=== PATIENT | female | born 1985 | race Caucasian/White ===

== ENCOUNTER 2017-02-25 17:04 | Outpatient (CLI) | payer MEDICAID | END 2017-02-25 17:05 | disposition EMS.NT | LOC: EMS 17:04 | PROVIDERS: ATTEND Surgery | DX: R06.2 Wheezing (principal); M54.5 Low back pain; V49.40XA Driver injured in collision with unspecified motor vehicles in traffic accident, initial encounter; Y92.414 Local residential or business street as the place of occurrence of the external cause ==

== ENCOUNTER 2019-09-09 10:23 | Outpatient (CLI) | payer OTHER, BC ==
--- NOTE | 2019-09-09 12:57 | XRAY Report ---
Reason: NONDISPLACED FRACTURE OF LATERAL [facility]LEOLUS OF [facility] Procedure Date: 09/09/2019 Accession Number: [id number] / [id number] Procedure: XR - Ankle 3 View RT CPT Code: Final Report FULL RESULT: EXAM: RIGHT ANKLE RADIOGRAPHY EXAM DATE: 09/09/2019 10:32 AM. CLINICAL HISTORY: NONDISPLACED FRACTURE OF LATERAL MALLEOLUS RIGHT COMPARISON: None. TECHNIQUE: 3 views. FINDINGS: Bones: Fracture lucency not visible. Joints: Normal. No effusion. No subluxations. The ankle mortise is normally aligned. Soft Tissues: Soft tissue swelling. IMPRESSION: Fracture lucency not visible. RADIA
== END 2019-09-09 10:24 | disposition home or self-care (01) ==
LOC: DI 10:23
PROVIDERS: ATTEND Nurse Practitioner
DX: S82.64XA Nondisplaced fracture of lateral malleolus of right fibula, initial encounter for closed fracture (principal)

== ENCOUNTER → 2019-11-10 | Outpatient (CLI) | payer OTHER, BC | LOC: LAB.R 14:02 | PROVIDERS: ATTEND Family Medicine | DX: R50.9 Fever, unspecified (principal); R05 Cough; J45.909 Unspecified asthma, uncomplicated; J01.90 Acute sinusitis, unspecified | CPT/HCPCS: 81599 ==

== ENCOUNTER 2020-06-06 07:08 | Outpatient (CLI) | payer OTHER, BC ==
[2020-06-06 12:12] LABS: BASOPHILS # (AUTO) 0.1 10^3/uL (0.0-0.1); BASOPHILS % (AUTO) 0.8 %; EOSINOPHILS # (AUTO) 0.1 10^3/uL (0.0-0.7); EOSINOPHILS % (AUTO) 1.6 %; HGB - HEMOGLOBIN 14.5 g/dL (12.0-16.0); LYMPHOCYTES # (AUTO) 3.1 10^3/uL (1.5-3.5); LYMPHOCYTES % (AUTO) 48.6 %; MEAN CORPUSCULAR HEMOGLOBIN 27.7 pg (27.0-31.0); MEAN CORPUSCULAR VOLUME 86.5 fL (81.0-99.0); MEAN PLATELET VOLUME 10.9 fL (7.9-10.8); MONOCYTES # (AUTO) 0.4 10^3/uL (0.0-1.0); MONOCYTES % (AUTO) 6.3 %; NEUTROPHILS # (AUTO) 2.7 10^3/uL (1.5-6.6); NEUTROPHILS % (AUTO) 42.2 %; PLT - PLATELET COUNT 183 10^3/uL (130-450); RED BLOOD COUNT 5.24 10^6/uL (4.20-5.40); RED CELL DISTRIBUTION WIDTH 13.9 % (12.0-15.0); WHITE BLOOD COUNT 6.3 x10^3/uL (4.8-10.8)
[2020-06-06 12:24] LABS: ALBUMIN 4.1 g/dL (3.2-5.5); ALBUMIN/GLOBULIN RATIO 1.2 (1.0-2.2); ALKALINE PHOSPHATASE 65 IU/L (42-121); ALT ALANINE AMINOTRANSFERASE 15 IU/L (10-60); AST ASPARTATE AMINOTRANSFERASE 28 IU/L (10-42); BILIRUBIN,TOTAL 1.2 mg/dL (0.2-1.0); BUN - BLOOD UREA NITROGEN 13 mg/dL (6-20); CALCIUM 8.9 mg/dL (8.5-10.3); CARBON DIOXIDE - CO2 25 mmol/L (21-32); CHLORIDE 104 mmol/L (101-111); CHOL/HDL RATIO 4.7 (<4.4); CHOLESTEROL 166 mg/dL; CREATININE 0.8 mg/dL (0.4-1.0); GLUCOSE 118 mg/dL (70-100); HDL CHOLESTEROL 35 mg/dL; LDL CHOLESTEROL,CALCULATED 107 mg/dL; LDL/HDL RATIO 3.1 (<4.4); SODIUM 138 mmol/L (135-145); TOTAL PROTEIN 7.4 g/dL (6.7-8.2); VLDL CHOLESTEROL 24 mg/dL
[2020-06-08 09:45] LABS: HEMOGLOBIN A1c% 5.1 % (4.27-6.07)
== END 2020-06-06 07:09 | disposition home or self-care (01) ==
LOC: LAB.WCP 07:08
PROVIDERS: ATTEND Nurse Practitioner
DX: Z00.00 Encounter for general adult medical examination without abnormal findings (principal); R73.01 Impaired fasting glucose; G43.909 Migraine, unspecified, not intractable, without status migrainosus; J45.909 Unspecified asthma, uncomplicated; R94.31 Abnormal electrocardiogram [ECG] [EKG]
CPT/HCPCS: 36415; 80053; 80061; 83036; 83721; 84443; 85025

== ENCOUNTER 2021-09-02 12:15 | Outpatient (CLI) | payer OTHER, BC | END 2021-09-02 12:16 | disposition critical access hospital (66) | LOC: EMS 12:15 | DX: R51.9 Headache, unspecified (principal); R41.0 Disorientation, unspecified; M25.571 Pain in right ankle and joints of right foot; V43.52XA Car driver injured in collision with other type car in traffic accident, initial encounter; Y92.413 State road as the place of occurrence of the external cause | CPT/HCPCS: A0425; A0427 ==

== ENCOUNTER 2021-09-02 13:11 | Emergency (ER) | payer OTHER, BC ==
[2021-09-02] MEDS ORDERED: iohexoL-300 100 ML VIAL ONE (13:24)
[2021-09-02] MEDS ORDERED: HYDROmorphone 1 MG/ML CARPUJECT ONE ×2 (14:40→15:31)
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
[2021-09-02] MEDS ORDERED: iohexoL-300 100 ML VIAL IVP ONE (17:54)
[2021-09-02 20:37] LABS: ALBUMIN 4.2 g/dL (3.2-5.5); ALBUMIN/GLOBULIN RATIO 1.2 (1.0-2.2); BILIRUBIN,TOTAL 0.5 mg/dL (0.2-1.0); CALCIUM 9.4 mg/dL (8.5-10.3); CREATININE 0.7 mg/dL (0.4-1.0); POTASSIUM 3.9 mmol/L (3.5-5.0); TOTAL PROTEIN 7.6 g/dL (6.7-8.2)
[2021-09-02 20:38] LABS: BASOPHILS # (AUTO) 0.1 10^3/uL (0.0-0.1); BASOPHILS % (AUTO) 0.6 %; EOSINOPHILS # (AUTO) 0.1 10^3/uL (0.0-0.7); EOSINOPHILS % (AUTO) 0.6 %; HCT - HEMATOCRIT 42.2 % (37.0-47.0); HGB - HEMOGLOBIN 13.4 g/dL (12.0-16.0); LYMPHOCYTES # (AUTO) 2.5 10^3/uL (1.5-3.5); LYMPHOCYTES % (AUTO) 26.3 %; MEAN CORPUSCULAR HEMOGLOBIN 27.8 pg (27.0-31.0); MEAN CORPUSCULAR HGB CONC 31.8 g/dL (32.0-36.0); MEAN CORPUSCULAR VOLUME 87.6 fL (81.0-99.0); MONOCYTES # (AUTO) 0.5 10^3/uL (0.0-1.0); MONOCYTES % (AUTO) 5.2 %; NEUTROPHILS # (AUTO) 6.4 10^3/uL (1.5-6.6); NEUTROPHILS % (AUTO) 66.9 %; PLT - PLATELET COUNT 301 10^3/uL (130-450); RED BLOOD COUNT 4.82 10^6/uL (4.20-5.40); RED CELL DISTRIBUTION WIDTH 13.5 % (12.0-15.0); WHITE BLOOD COUNT 9.6 x10^3/uL (4.8-10.8)
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
== END 2021-09-02 16:30 | disposition home or self-care (01) ==
LOC: ED 13:11
DX: S20.219A Contusion of unspecified front wall of thorax, initial encounter (principal); S20.319A Abrasion of unspecified front wall of thorax, initial encounter; S06.9X9A Unspecified intracranial injury with loss of consciousness of unspecified duration, initial encounter; M25.571 Pain in right ankle and joints of right foot; M54.50 Low back pain, unspecified; M25.552 Pain in left hip; V43.52XA Car driver injured in collision with other type car in traffic accident, initial encounter; W22.11XA Striking against or struck by driver side automobile airbag, initial encounter; Y92.410 Unspecified street and highway as the place of occurrence of the external cause
CPT/HCPCS: 36415; 70450; 71260; 72125; 73610; 74177; 80053; 83690; 84702; 85025; 96374; 99281; 99284; J1170

== ENCOUNTER 2024-02-19 08:15 | Outpatient (CLI) | payer OTHER, BC | END 2024-02-19 23:59 | disposition critical access hospital (66) | LOC: EMS 08:15 | DX: R06.00 Dyspnea, unspecified (principal); R60.0 Localized edema; T39.395A Adverse effect of other nonsteroidal anti-inflammatory drugs [NSAID], initial encounter; R00.0 Tachycardia, unspecified | CPT/HCPCS: A0425; A0429 ==

== ENCOUNTER 2024-02-19 08:34 | Emergency (ER) | payer OTHER, BC ==
[2024-02-19 09:01] VITALS: BP 141/100; O2SAT 100
--- NOTE | 2024-02-19 09:44 | ED Physician Documentation ---
History of Present Illness - Stated complaint Stated Complaint: ALLERGIC REACTION - Chief complaint Chief Complaint: Resp - History obtained from History obtained from: Patient, EMS - Additonal information Additional information: The patient comes to the emergency department via EMS for chief complaint of allergic reaction. She states she was just started on Celebrex and phentermine and that she took all her medications the first and last night. She states she felt a little weird but then this morning when she took her meds, her face immediately began to feel tingly and her lips and tongue began to swell up. She also felt some tightness in her throat and had some burning and itching on her neck. She denies any hives or other rash. She went straight to the walk-in clinic where they gave her IM Decadron, Benadryl, and a shot of an EpiPen and called EMS. The patient states the medications have helped immensely and that while she still has slight tingles occasionally and a slight burning on her neck, her mouth and throat are much better. She just has a little bit of a dry mouth. The patient denies ever having been on Celebrex before or ever having had any reaction to any anti-inflammatory previously. She has never had an allergic reaction like this before. No other complaints at this time. 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: Endometriosis - Past Surgical History Past Surgical History: Yes /AVIONICS TECHNICIAN: Tubal ligation - Present Medications Home Medications: Ambulatory Orders Medication Instructions Recorded Confirmed HYDROcod/ACETAM 5/325 [Ama 5/325] 1 tablet PO BID PRN #10 tablet 09/02/21 EPINEPHrine [Epinephrine] 0.3 mg IJ ONCE PRN #1 each 02/19/24 Famotidine [Pepcid] 20 mg PO BID #6 tablet 02/19/24 diphenhydrAMINE [Benadryl] 25 mg PO Q4-6H PRN #20 cap 02/19/24 predniSONE [Deltasone] 60 mg PO DAILY 3 Days #9 tablet 02/19/24 - Allergies Allergies/Adverse Reactions: Allergies Allergy/AdvReac Type Severity Reaction Status Date / Time celecoxib [From Celebrex] Allergy Anaphylaxis Verified 02/19/24 08:46 - Social History Does the pt smoke?: No Smoking Status: Never smoker Does the pt drink ETOH?: Yes Does the pt have substance abuse?: No Substance Use and Type: Marijuana PD ED PE NORMAL - Vitals Vital signs reviewed: Yes - General General: Alert and oriented X 3, No acute distress, Well developed/nourished - HEENT HEENT: Atraumatic, EOMI, Moist mucous membranes, Pharynx benign (No oropharyngeal or facial edema.) - Neck Neck: Supple, no meningeal sign - Cardiac Cardiac: RRR, No murmur - Respiratory Respiratory: No respiratory distress, Clear bilaterally - Abdomen Abdomen: Soft, Non tender, Non distended - Derm Derm: Normal color, Warm and dry, No rash - Extremities Extremities: No deformity - Neuro Neuro: Alert and oriented X 3 - Psych Psych: Normal mood, Normal affect Results - Vitals Vitals: Vital Signs - 24 hr 02/19/24 08:39 Temperature 36.9 C Heart Rate 112 H Respiratory 18 Rate Blood Pressure 141/100 H O2 Saturation 100 Oxygen O2 Source Room air PD Medical Decision Making - ED course Complexity details: considered differential, d/w patient, d/w family ED course: The patient was now fully well-appearing in the emergency department and really did not have any complaints. She has been treated appropriately by an outside facility already and there is nothing for me to add at this point. I have prescribed Benadryl, prednisone, and Pepcid for the patient, as well as an EpiPen. We have discussed that she may have some waxing and waning of symptoms as the meds wear off but that this should ultimately down on its own. I do not expect the patient to develop the edema of her mouth and throat again unless she is reexposed to the medication or other allergen, but we have discussed the need to use the EpiPen if she does notice her swelling coming back. We have discussed the need to immediately return if she develops severe oropharyngeal edema or any oropharyngeal edema that is not responsive to the EpiPen. We have also discussed the need for follow-up. Departure - Departure Disposition: 01 Home, Self Care Clinical Impression: Allergic reaction Qualifiers: Encounter type: initial encounter Qualified Code(s): T78.40XA - Allergy, unspecified, initial encounter Condition: Stable Instructions: ED Drug React Allergic Prescriptions: diphenhydrAMINE [Benadryl] 25 mg PO Q4-6H PRN #20 cap PRN Reason: Allergy Symptoms predniSONE [Deltasone] 60 mg PO DAILY 3 Days #9 tablet EPINEPHrine [Epinephrine] 0.3 mg IJ ONCE PRN #1 each PRN Reason: Anaphylaxis Famotidine [Pepcid] 20 mg PO BID #6 tablet Comments: There is no evidence of ongoing, life-threatening allergic reaction at this time. The medications that you were given at the walk-in clinic were the same as what we would have given you here and has been very effective. It is not surprising that you feel a little bit of residual symptoms and you will most likely have some symptoms throughout the day. However, you should not return to the degree of swelling that you had before. I have prescribed the 3 medications that we use for allergic reactions, which include Benadryl, steroid, and Pepcid. These generally do not need to be used for more than 3 days in a row and you can stop using them once your allergic symptoms are no longer returning. I have also prescribed you an EpiPen to have on hand just in case you have any further swelling. These prescriptions have been electronically transmitted to the [facility] pharmacy in [place]. You should avoid any substance to which you think you may be allergic, and as such, should stop taking the Celebrex. Please follow-up with your primary doctor to discuss what you can be on instead, andfor further concerns. If you are exposed to something else and develop severe swelling again, please return without delay to the emergency department.
== END 2024-02-19 09:56 | disposition home or self-care (01) ==
LOC: EDUNIT# → ED 08:34
DX: R22.0 Localized swelling, mass and lump, head (principal); T39.395A Adverse effect of other nonsteroidal anti-inflammatory drugs [NSAID], initial encounter; T50.5X5A Adverse effect of appetite depressants, initial encounter; J45.909 Unspecified asthma, uncomplicated; E11.9 Type 2 diabetes mellitus without complications
CPT/HCPCS: 99283